=== PATIENT | female | born 1940 | race Caucasian/White ===

== ENCOUNTER 2023-08-25 12:23 | Inpatient (IN) | payer MEDICARE, BC, SELFPAY ==
[2023-08-25] VITALS (8 sets, daily range): BP systolic 113–219; BP diastolic 53–79; PULSE 79–98; RESP 18; TEMP 36.7–38.1; O2SAT 88–95
--- NOTE | 2023-08-25 | DI.RAD_ITS ---
Exam(s) XR CHEST 1V IN DI DEPT EXAM: XR CHEST 1V IN DI DEPT CLINICAL HISTORY: pre-op TECHNIQUE: 2D digital imaging was performed of the chest. One image was obtained. An AP view was ob tained. COMPARISON: No exams were available for comparison FINDINGS: MEDIASTINUM: Normal. HEART: Normal. PULMONARY VASCULATURE: Normal. LUNGS: Clear. PLEURAL SPACE: No pleural effusion or pneumothorax. BONE:Within normal limits for the patient's age. Intramedullary calcifications are seen in the proxim al metaphysis of the right humerus. This may represent a bone infarct or an enchondroma. OTHER FINDINGS:Normal. IMPRESSION: No focal consolidation. DATA REPOSITORY: RADIATION DOSE DELIVERED:
--- NOTE | 2023-08-25 12:30 | DI.RAD_ITS ---
Exam(s) XR HIP LT COMPLETE AP PELVIS XR FEMUR LT CT LOWER EXTREMITY LT WO EXAM: CT LOWER EXTREMITY LT WO and XR hip LT complete AP pelvis and XR femur LT CLINICAL HISTORY: Lt femoral neck fx. TECHNIQUE: Imaging Protocol: Axial computed tomography images with coronal and sagittal reformatted images were created and reviewed. Six images were obtained. COMPARISON: CR,XR XR HIP LT COMPLETE AP PELVIS from 08/25/2023 CR,XR XR FEMUR LT from 08/25/2023 FINDINGS: XR hip LT, AP pelvis and XR femur LT: There is an acute subcapital fracture of the left femoral neck. There is mild impaction of the fract ure. No other fractures identified. There are degenerative changes seen in the hips bilaterally. T here are degenerative changes seen in the lower lumbar spine. The sacroiliac joints and symphysis pu bis appear intact. Atherosclerosis is present. Bones: There is an acute subcapital fracture of the left femoral neck. No other fracture is identif ied. The femoral head is seated within the acetabulum. There are mild degenerative changes seen at the hip. No lytic or sclerotic lesions are identified. Soft Tissues: Note is made of diverticulosis of the colon. IMPRESSION: Acute subcapital left femoral neck fracture. There is mild impaction of the fracture noted. RADIATION DOSE DELIVERED: Total DLP Total DLP DATA REPOSITORY: All CT scans at this facility are submitted to the National Radiology Data Registry (NRDR) Dose Index Registry (DIR) with the [employer] ([employer]). RADIATION OPTIMIZATION: All CT scans at this facility use at least one of these dose optimization te chniques: automated exposure control; mA and/or kV adjustment per patient size (includes targeted exa ms where dose is matched to clinical indication); or iterative reconstruction.
--- NOTE | 2023-08-25 12:43 | ED.GENADUL_ITS ---
Discharge Plan Disposition Patient Disposition: Admit to [facility] Condition: Stable Discharge Details Chief Complaint: Fall/Non TraumaCriteria Clinical Impression: Fracture of neck of left femur Primary Care Provider: Unknown,Unknown ED Provider: Jack Hand Home Meds and New Rx's Prescriptions: No Action aspirin 325 MG tablet 325 mg PO DAILY Medical Decision Making This dictation utilizes [id number] dictation software and may contain unedited grammatical errors. 82 y/o F presents to ED today with a chief complaint of L hip pain (R-foot dominant) from a trip & fall this morning around 0830. Onset and characteristics include 8/10 L hip pain, feels as if its broken, drove herself in, refusing pain meds here. Patients' medical history: noncontributory - denies cardiac history. Family and social history: noncontributory, lives at home with her , ambulates normally very well without assisttance. Pertinent exam findings / vital signs include TTP L hip, no sensory or ciruclatory deficit distally, pelvis stable. Differential / pathologies of concern include Hip Fracture, Contusion, Strain/Sprain, Pelvic Fracture. Diagnostic studies of: -XR L Hip - shows L proximal subcapital femur fracture, non-displaced. Interventions of: -none, patient refusing pain medicines, is being kept non-WB. ED Course/Assessment/Plan: L subcapital hip fracture of L femoral neck, discussed with Dr. Light- recommends hospitalist admit and ortho will consult and perform surgery if needed, forwarded images to him for operative planning. Consulted with hospita list Dr. Ross for admission who accepts. Findings not consistent with neurovascular compromise. Disposition of Fracture of Neck of Left Femur Patient verbalized understanding of the plan and return to ED criteria and engaged in shared decision making. Medical Records Medical records reviewed: Yes I reviewed the patient's medical records. Imaging Data Radiologic Study: Imaging: X-Ray Radiologist's impression: vRAD read subcapital fracture of proximal left femur HPI General Date/Time Provider Initiated Documentation: 08/25/23 12:39 . HPI Narrative: 82 year-old female presents to ED today by POV/amublating with a chief complaint of L hip pain after a trip & fall on a single step with onset around 0830 this morning. Patient drove themselves in. Quality described as feels like she broke her hip, asking for Dr. Aguila to see her in ED, no radiation to leg length discrepency, internal/external rotation, denies large swelling or skin changes, states pain with weight-bearing. Patient is R-foot dominant, does not use a walker or any other device at baseline- lives a full independent life with her . Severity is described as 8/10. Palliating factors include nothing specific- refusing Tylenol & ibuprofen and ice pack here in ED. Provoking factors include nothing specific. Patient not anticoagulated. Related Data Home Medications Medication Instructions Recorded Confirmed aspirin 325 mg tablet 325 mg PO DAILY 09/14/15 08/25/23 Allergies Allergy/AdvReac Type Severity Reaction Status Date / Time tetracycline AdvReac Intermediate rash Unverified 08/25/23 12:36 azithromycin AdvReac Mild itchy Unverified 08/25/23 12:36 seasonal allergies Allergy Mild Uncoded 08/25/23 12:36 General Stated Complaint: Fall/Non TraumaCriteria CONNIE: 4 Review of Systems All systems reviewed & are unremarkable except as noted in HPI and below PFSH All Active Problems (Updated 08/25/23 @ 13:59 by SOMMER Dutton) Fracture of neck of left femur (Acute) Social History Smoking/Tobacco Use Status: Never Smoking risk assessment performed?: Yes Drug use: Never Housing: house Do you feel safe at home: Yes Do you feel safe in your relationship?: Yes Additional Social history: lives with cheng, FALLON, RN 08/25/23 Exam Narrative Exam Narrative: GENERAL APPEARANCE: Well-nourished, non-toxic, awake and alert, atraumatic, no acute distress. SKIN: Warm, pink, dry, intact, without rashes/lesions/ulcerations. HEAD: Normocephalic, atraumatic, normal hair distribution for gender/age. EYES: Pupils PERRLA, EOMs intact without nystagmus, normal conjunctiva, no exudates on lids/lashes. ENT: Nares patent, no circumoral cyanosis, no facial swelling NECK: Supple, trachea midline, painless cervical ROM. LUNGS/CHEST: Lungs CTA bilaterally- no rhonchi/rales/wheezes diffusely, non- labored respirations, normal A/P diameter, symmetrical expansion, no chest wall deformity HEART (CV/PV): Regular rate and rhythm without murmur, no peripheral edema, no JVD. ABDOMEN: Soft, non-distended, no guarding, no tenderness. MSK: Normal ROM, no swelling/deformity to bilateral UEs or LEs, moving all extremities without weakness, no cyanosis, spine midline without tenderness, normal curvature. L LE: pelvis stable, TTP at greater trochanter of L hip, distal femur stable, states cannot extend leg fully - sensation intact distally, dorsalis pedis pulse 2+ NEURO: Mental Status AAOx4 - alert to person, place, time, events No facial droop, no forehead involvement. Motor: No focal weakness - strength 5/5 in bilateral UEs and LEs, proximal and distal, symmetric. Sensory: sensation intact to light touch globally. Gait NT. PSYCH: dysthymic, cooperative, pleasant, appropriate speech Course Vital Signs Vital signs: Vital Signs Temperature 36.7 C 08/25/23 12:30 Pulse 91 H 08/25/23 12:30 Respiratory Rate 18 08/25/23 12:30 Blood Pressure 219/75 H 08/25/23 12:30 Pulse Oximetry 95 08/25/23 12:30 Temperature 36.7 C 08/25/23 12:30 Temperature Source Oral 08/25/23 12:30 Pulse 91 H 08/25/23 12:30 Respiratory Rate 18 08/25/23 12:30 Respiratory Effort Normal 08/25/23 12:37 Blood Pressure 219/75 H 08/25/23 12:30 Pulse Oximetry 95 08/25/23 12:30 Oxygen Delivery Method Room Air 08/25/23 12:30 Oxygen Flow Rate 0 08/25/23 12:30 Pain Level 4 08/25/23 12:39
--- NOTE | 2023-08-25 13:27 | DI.VRAD_ITS ---
PROCEDURE INFORMATION: Exam: XR Left Hip Exam date and time: 08/25/2023 1:00 PM Age: 82 years old Clinical indication: Hip pain; Left hip TECHNIQUE: Imaging protocol: Radiologic exam of the left hip. Views: 2 or 3 views hip with pelvis when performed. COMPARISON: No relevant prior studies available. FINDINGS: Bones/joints: Subcapital fracture of the proximal left femur, perhaps with minimal impaction. No obvious acute fracture of the pelvic bones proper. Soft tissues: Unremarkable. IMPRESSION: Subcapital fracture proximal left femur. Dictated and Authenticated by: Deo Sanches MD. Ordering:DUDLEY Santiago MD
--- NOTE | 2023-08-25 14:02 | W.PM.HP.N ---
Date of service: 08/25/23 Time of Service: 14:03 Assessment and Plan Assessment and plan (1) Fracture of neck of left femur: Status: Acute Assessment and plan: -Fracture resulted after mechanical fall on the steps -Preoperative CBC, CMP, INR, chest x-ray and EKG are ordered and currently pending -Has no past medical history -Will manage pain and continue to offer PRNs -Will be n.p.o. at midnight with anticipation of surgical repair on 08/26/2023 History of Present Illness History of Present Illness Chief Complaint: Left hip pain Narrative: 82-year-old female, healthy and independent with no past medical history presents to the emergency department after experiencing a fall and having left hip pain. Patient states that she tripped and fell on a single step around 830 this morning and began to experience left hip pain however, patient was able to drive herself to the emergency department. She denies any lightheaded or dizziness preceding the fall, hitting her head, head injury, chest pain shortness of breath, nausea vomiting or diarrhea. In the emergency department patient was noted as being hypertensive however this is likely secondary to pain though the patient did refuse Tylenol ibuprofen or an ice pack in the emergency department. Remainder of her vital signs unremarkable, however x-ray of the hip did show a left subcapital proximal femur fracture. Emergency room PA discussed with orthopedic surgery who stated they would take the patient to the operating room tomorrow, 08/26/2023. Which the emergency room PA paged hospitalist for admission for patient with left hip fracture requiring surgical repair. Review of Systems All systems reviewed & are unremarkable except as noted in HPI and below PFSH All Active Problems Fracture of neck of left femur (Acute) Social History Smoking/Tobacco Use Status: Never Smoking risk assessment performed?: Yes Drug use: Never Housing: house Do you feel safe at home: Yes Do you feel safe in your relationship?: Yes Additional Social history: lives with cheng, FALLON, RN 08/25/23 Meds Allergies and Home Medications Allergies Allergy/AdvReac Type Severity Reaction Status Date / Time tetracycline AdvReac Intermediate rash Unverified 08/25/23 14:40 azithromycin AdvReac Mild itchy Unverified 08/25/23 14:40 seasonal allergies Allergy Mild Uncoded 08/25/23 14:40 Home Medications Medication Instructions Recorded Confirmed Type aspirin 325 mg tablet 325 mg PO DAILY 09/14/15 08/25/23 History Exam Narrative Exam Narrative: Well-appearing older female laying in bed in no acute distress, A&O x 4, heart regular rate rhythm, lungs clear to auscultation bilaterally, abdomen soft, nontender nondistended, decreased range of motion of left lower extremity at the hip second Results Labs 08/25/23 17:16 08/25/23 17:16 Last Vital Signs Temp 98.0 F 08/25/23 12:30 Pulse 91 H 08/25/23 12:30 Resp 18 08/25/23 12:30 BP 219/75 H 08/25/23 12:30 Pulse Ox 95 08/25/23 12:30 Time Spent Time spent with Patient: >75 minutes Time was spent: preparing to see the patient(eg.review tests), obtaining and/or reviewing separately otained hiistory, ordering medications,tests, procedures, referring, communicating with other health daycare manager, indepentently interpreting results, counseling the patient and care coordination
[2023-08-25] MEDS: Acetaminophen 500 MG TAB 1000 MG PO (14:50)
[2023-08-25] MEDS: Ketorolac 10 MG TAB PO (14:50)
[2023-08-25] MEDS: oxyCODONE 5 MG TAB PO (14:50)
--- NOTE | 2023-08-25 16:39 | NUR.NOTE ---
Discussed DPOAH with pt and her as they do not have an advanced directive. They will talk about it together and decide what they want.Nursing Note:
--- NOTE | 2023-08-25 17:15 | OCONE_ITS ---
Date of service: 08/26/23 Time of Service: 08:30 Assessment and Plan Assessment and plan (1) Fracture of neck of left femur: Status: Acute Assessment and plan: 82 year old female with minimally displaced Left femoral neck fx Patient describes mechanical fall yesterday injuring left hip. Describes groin pain that radiates down the thigh. Was able to weight-bear after the injury, go to [employer] after the fall, and then and drive herself to the emergency room on insistence of her family. Denies any pre-existing hip pain or problems at all. No known arthritis. No medical visits for hip pain. Did fall onto her last hip about 9 months ago, but no residual problems that she knows about. Ambulates without assist device inside and outdoors. Denies any major medical problems. Allergies to a couple antibiotics. Review of systems negative including no headache, neck pain, chest pain, shortness of breath, nausea vomiting, numbness or tingling in the extremities. Patient resting comfortably in hospital bed. Alert, oriented, and conversant. Shows minor abrasions right hand dorsal long and ring finger PIPJ knuckles, but no deformity no bruising in about full painless range of motion. Otherwise no injuries bilateral upper extremities and right lower extremity. Left lower extremity without any deformity or major rotation malalignment. No visible bruising, no edema. Thigh compartments soft. Calf compressible. Easily demonstrates intact motor about foot and ankle, sensory intact throughout without paresthesias. Dorsalis pedis pulse readily palpable. Preoperative workup reviewed?elevated WBC likely stress response, monitor for resolution after surgery, consider potential usual causes like atelectasis, PNA, and UTI if continues. Discussed thoroughly with patient and her Cheng. X-rays show minimally displaced femoral neck fracture. CT scan confirms complete, mildly impacted fracture with, mild posterior angulation and no significant comminution. Again, patient denies any pre-existing hip problems at all. We reviewed the significant arthrosis on x-ray. We discussed the surgical management of this fracture with internal fixation versus arthroplasty. Patient would like to maintain her current hip and proceed with the less invasive cannulated screw fixation. They understand the risks of femoral neck shortening, nonunion, and AVN about 20%, which may require additional surgery in the future like total hip arthroplasty. We also discussed potential prominent screw heads requiring hardware removal down the road. Decision to proceed with surgery today: Left hip closed reduction and internal fixation (percutaneous cannulated screws). Plan on gentle reduction of posterior angulation and posterior positioning screw with threads crossing the fracture to prevent collapse. The risks, benefits, and alternatives were thoroughly discussed. Patient was counseled regarding pain management, expected postoperative course, and recovery timeline. All questions were answered. Informed consent was obtained. They agree and understand treatment plan. Breathing comfortably on room air. Was on low-flow nasal cannula after narcotic administration on the floor. No coughs or wheezes. 2+ Left dorsalis pedis pulse. Regular rate and rhythm. PFSH All Active Problems (Updated 08/25/23 @ 17:21 by Luis Light MD) Fracture of neck of left femur (Acute 08/25/23) Social History Smoking/Tobacco Use Status: Never Smoking risk assessment performed?: Yes Drug use: Never Housing: house Do you feel safe at home: Yes Do you feel safe in your relationship?: Yes Additional Social history: lives with cheng, FALLON, RN 08/25/23 Results Last Vital Signs Temp 100.4 F H 08/25/23 16:13 Pulse 98 H 08/25/23 16:13 Resp 18 08/25/23 16:13 BP 113/65 08/25/23 16:13 Pulse Ox 95 08/25/23 16:13 Labs 08/26/23 06:15 08/26/23 06:15
--- NOTE | 2023-08-25 17:15 | RT.EKG_ITS ---
APPROVED REPORT Exam: Resting ECG Reason for Exam: pre-op Patient Location: I HR:96 bpm ECG Measurements Heart Rate 96 AXIS ND 168 P 69 QRSd 126 QRS -44 QT 379 T 89 QTc 479 Conclusion Sinus rhythm...normal P axis, V-rate 50- 99 Probable left atrial enlargement...P >50mS, <-0.10mV V1 Left bundle branch block...QRSd>120, broad/notched R I have reviewed and interpreted ECG and agree with software generated interpretation.
[2023-08-25] MEDS: Lidocaine 5% Patch 1 PATCH TP (17:35)
--- NOTE | 2023-08-25 18:30 | DI.VRAD_ITS ---
PROCEDURE INFORMATION: Exam: XR Chest Exam date and time: 08/25/2023 5:59 PM Age: 82 years old Clinical indication: Other: Pre-op TECHNIQUE: Imaging protocol: Radiologic exam of the chest. Views: 1 view. COMPARISON: No relevant prior studies available. FINDINGS: Lungs: Mild hyperinflation without airspace consolidation. Pleural spaces: No pleural effusion. No pneumothorax. Heart/Mediastinum: No cardiomegaly. Bones/joints: Benign-appearing likely bone island or bone infarct in the right humerus. No displaced fracture. IMPRESSION: Mild hyperinflation without airspace consolidation. Dictated and Authenticated by: Haylie Cain MD. Ordering:TOPHER Bolton MD
--- NOTE | 2023-08-25 18:31 | DI.VRAD_ITS ---
PROCEDURE INFORMATION: Exam: XR Left Femur Exam date and time: 08/25/2023 6:05 PM Age: 82 years old Clinical indication: Injury or trauma; Fall; Other: Fracture TECHNIQUE: Imaging protocol: Radiologic exam of the left femur. Views: 2 views. COMPARISON: CT LOWER EXTREMITY LT WO 08/25/2023 5:53 PM FINDINGS: Bones/joints: Acute subcapital left femoral neck fracture with minimal impaction. The remainder of the femur is intact. The bones are demineralized. Soft tissues: Unremarkable. IMPRESSION: Acute subcapital left femoral neck fracture with minimal impaction. The remainder of the femur is intact. Dictated and Authenticated by: Haylie Cain MD. Ordering:KAT Smith MD
--- NOTE | 2023-08-25 18:31 | DI.VRAD_ITS ---
PROCEDURE INFORMATION: Exam: CT Left Lower Extremity Without Contrast, Hip Exam date and time: 08/25/2023 5:53 PM Age: 82 years old Clinical indication: Other: L femoral neck FX TECHNIQUE: Imaging protocol: CT of the left lower extremity without contrast was performed. Exam focused on the hip. COMPARISON: CR XR HIP LT COMPLETE AP PELVIS 08/25/2023 1:00 PM FINDINGS: Bones/joints: Acute subcapital left femoral neck fracture with minimal impaction. No dislocation. Moderate joint space narrowing of the left hip. Minor edema around the left hip without a gross fluid collection. Soft tissues: Benign-appearing enthesophytes. Vasculature: Atherosclerosis. Bowel: The rectum as visualized is severely distended with stool without definite wall thickening to suggest proctitis. IMPRESSION: Acute subcapital left femoral neck fracture with minimal impaction. Dictated and Authenticated by: Haylie Cain MD. Ordering:KAT Smith MD
[2023-08-25 19:17] LABS: Abs Immature Grans 0.11 10^3/uL (0.0-0.06); Absolute Basophil Count 0.07 10^3/uL (0.0-0.2); Absolute Eosinophil Count 0.03 10^3/uL (0.0-0.7); Absolute Lymphocyte Count 1.37 10^3/uL (1.2-3.4); Absolute Monocyte Count 1.01 10^3/uL (0.1-0.8); Absolute Neutrophil Count 14.56 10^3/uL (1.2-6.7); Basophils % 0.4; Eosinophils % 0.2; HCT 37.8 % (36.0-46.0); HGB 12.4 g/dL (11.2-15.7); Immature Grans % 0.6; MCHC 32.8 % (32.0-36.0); MCV 89 fL (80-95); MPV 10.7 fL (8.0-11.0); Monocytes % 5.9; Neutrophils % 84.9; Platelet Count 208 10^3/uL (130-400); RBC 4.27 10^6/uL (3.93-5.22); RDW 12.6 % (11.7-14.6); RDW-SD 40.2 fL; WBC 17.15 10^3/uL (4.4-10.8)
[2023-08-25 19:25] LABS: INR 1.1 (0.9-1.1)
[2023-08-25 19:30] LABS: ALT 27 U/L (14-59); AST 26 U/L (15-37); Albumin 3.2 g/dL (3.4-5.0); Alkaline Phosphatase 79 U/L (46-116); Anion Gap 9.5 mmol/L (3-11); BUN 18 mg/dL (7-18); Bilirubin, Total 0.5 mg/dL (0.2-1.0); CO2 26.5 mmol/L (21.0-32.0); CREATININE 1.2 mg/dL (0.55-1.02); Calcium 8.9 mg/dL (8.5-10.1); Chloride 103 mmol/L (98-107); Estimated GFR 45.76 (mL/min/1.73m2); Glucose 140 mg/dL (74-106); Sodium 139 mmol/L (136-145); Total Protein 6.9 g/dL (6.4-8.2)
[2023-08-25] MEDS: Normal Saline Flush 10 ML SYR IVP (20:15)
[2023-08-26] VITALS (15 sets, daily range): BP systolic 127–166; BP diastolic 36–75; PULSE 77–98; RESP 16–20; TEMP 36.3–38.3; O2SAT 82–97; BMI 24.3
[2023-08-26] MEDS: Acetaminophen 325 MG TAB PO ×2 (04:03→08:30)
[2023-08-26] MEDS: Patch Removal 1 EACH TP (05:38)
[2023-08-26 07:08] LABS: HCT 37.1 % (36.0-46.0); HGB 12.5 g/dL (11.2-15.7); MCH 29.5 pg (27.0-33.0); MCHC 33.7 % (32.0-36.0); MCV 88 fL (80-95); MPV 11.5 fL (8.0-11.0); Platelet Count 211 10^3/uL (130-400); RBC 4.24 10^6/uL (3.93-5.22); RDW 12.7 % (11.7-14.6); RDW-SD 39.9 fL; WBC 12.37 10^3/uL (4.4-10.8)
[2023-08-26 07:23] LABS: Anion Gap 10.4 mmol/L (3-11); BUN 19 mg/dL (7-18); CO2 25.6 mmol/L (21.0-32.0); Calcium 9.1 mg/dL (8.5-10.1); Chloride 103 mmol/L (98-107); Estimated GFR 56.95 (mL/min/1.73m2); Glucose 112 mg/dL (74-106); Magnesium 1.8 mg/dL (1.8-2.4); Potassium 3.9 mmol/L (3.5-5.1); Sodium 139 mmol/L (136-145)
--- NOTE | 2023-08-26 08:15 | DI.RAD_ITS ---
Exam(s) XR HIP LT IN OR EXAM: XR HIP LT IN OR CLINICAL HISTORY: Fracture of neck of left femur. TECHNIQUE: 2D digital imaging was performed. COMPARISON: No exams were available for comparison FINDINGS: Fluoroscopy provided during orthopedic pinning of left femoral neck fracture. See procedure report f or details Total fluoroscopy time 40.8 seconds IMPRESSION: Radiation exposure index/cumulative dose: Shantalflako= 4.4092mGy DATA REPOSITORY: RADIATION DOSE DELIVERED:
--- NOTE | 2023-08-26 08:24 | ANES.PREOP_ITS ---
General Info Date of Service Date Performed: 08/26/23 Height: 4 ft 11 in Weight: 54.7 kg Body Mass Index (BMI): 24.3 Surgical Procedure: Operation Date: 08/26/23 10:10 Proposed Procedure Side Surgeon p Hip Cannulated Fx Left Luis Light MD Meds Allergies and Home Medications Allergies Allergy/AdvReac Type Severity Reaction Status Date / Time tetracycline AdvReac Intermediate rash Unverified 08/25/23 14:40 azithromycin AdvReac Mild itchy Unverified 08/25/23 14:40 seasonal allergies Allergy Mild Uncoded 08/25/23 14:40 Home Medication Medication Instructions Recorded aspirin 325 mg tablet 325 mg PO DAILY 09/14/15 Current Visit Medications: Current Medications Generic Name Dose Route Start Last Admin Trade Name Freq PRN Reason Stop Dose Admin Acetaminophen 0 mg 08/25/23 15:34 08/26/23 04:03 Acetaminophen 325 Mg Tab PO 650 mg Q4H PRN PRN Administration Docusate Sodium 100 mg 08/25/23 15:34 Docusate Sodium 100 Mg Cap PO TID PRN PRN IV Miscellaneous Supplies 1 each 08/25/23 15:34 Iv Access IV DIRECTED JUAN Lidocaine 1 patch 08/25/23 18:00 08/25/23 17:35 Lidocaine 5% Patch TP 1 patch Q24H JUAN Administration Miscellaneous 1 each 08/26/23 06:00 08/26/23 05:38 Patch Removal TP 1 each Q24H JUAN Administration Polyethylene Glycol 17 gm 08/25/23 15:34 Polyethylene Glycol 3350 17 Gm Packet PO DAILY PRN PRN Constipation Sodium Chloride 0 ml 08/25/23 15:34 Normal Saline Flush 10 Ml Syr IVP PRN PRN Sodium Chloride 0 ml 08/25/23 20:00 08/25/23 20:15 Normal Saline Flush 10 Ml Syr IVP 10 ml BID JUAN Administration Sodium Chloride 0 ml 08/25/23 15:34 Normal Saline 10 Ml Vial IJ DIRECTED PRN PFSH Active Problems Active Problems: Problem Status Onset Code Fracture of neck of left femur 08/25/23 S72.002A Medical History Medical History Comments:: CVA (1993?, some right sided weakness, primarily hand), TIA (2019?, primarily dizziness did not follow up with no symptoms since) Tobacco Smoking/Tobacco Use Status: Never Substance Use Substance use: Never Vital Signs and Lab Results Vital Signs Most Recent Vital Signs in EMR: Most Recent Vital Signs Temp Pulse Resp BP Pulse Ox 37.8 C H 90 18 165/69 H 92 08/26/23 07:51 08/26/23 07:51 08/26/23 07:51 08/26/23 07:51 08/26/23 07:51 Lab Results 08/26/23 06:15 08/26/23 06:15 Blood Type / Crossmatch: 2 No Data to Display Complete Blood Count: 2 White Blood Count 12.37 10^3/uL (4.4-10.8) H 08/26/23 06:15 Red Blood Count 4.24 10^6/uL (3.93-5.22) 08/26/23 06:15 Hemoglobin 12.5 g/dL (11.2-15.7) 08/26/23 06:15 Hematocrit 37.1 % (36.0-46.0) 08/26/23 06:15 Platelet Count 211 10^3/uL (130-400) 08/26/23 06:15 Complete Metabolic Panel: 2 Sodium 139 mmol/L (136-145) 08/26/23 06:15 Potassium 3.9 mmol/L (3.5-5.1) 08/26/23 06:15 Chloride 103 mmol/L (98-107) 08/26/23 06:15 Carbon Dioxide 25.6 mmol/L (21.0-32.0) 08/26/23 06:15 BUN 19 mg/dL (7-18) H 08/26/23 06:15 Creatinine 1.0 mg/dL (0.55-1.02) 08/26/23 06:15 Est GFR (CKD-EPI 2020) 56.95 (mL/min/1.73m2) 08/26/23 06:15 Magnesium 1.8 mg/dL (1.8-2.4) 08/26/23 06:15 Calcium 9.1 mg/dL (8.5-10.1) 08/26/23 06:15 Albumin 3.2 g/dL (3.4-5.0) L 08/25/23 18:58 Glucose 112 mg/dL (74-106) H 08/26/23 06:15 Liver Function Panel: 2 Alanine Aminotransferase (ALT/SGPT) 27 U/L (14-59) 08/25/23 18: 58 Aspartate Amino Transf (AST/SGOT) 26 U/L (15-37) 08/25/23 18:58 Coagulation Panel: 2 INR International Normalized Ratio 1.1 (0.9-1.1) 08/25/23 18:5 8 Prothrombin Time 11.0 sec (9.1-11.1) 08/25/23 18:58 Cardiac Panel: 2 No Data to Display Arterial Blood Gas: 2 No Data to Display Venous Blood Gas: 2 No Data to Display Pancreas Panel: 2 No Data to Display Thyroid Panel: 2 No Data to Display Infectious Disease: 2 No Data to Display Blood Cultures: 2 No Data to Display Toxicology Panel: 2 No Data to Display Anesthesia Assessment and Plan Anesthesia History Personal History: No History of Anesthesia Complications Family History: No Family History of Anesthesia Complications Exercise Tolerance Exercise Tolerance: Metabolic Equivalents>4 Pertinent Negatives Pertinent Negatives: No Symptoms of GERD, No Major Pulmonary Symptoms or Complaints and No History of CVA/TIA Cardiac & Pulmonary Exam Cardiac Exam: Normal S1/S2 Heart Sounds Pulmonary Exam: Clear Bilateral Breath Sounds Implantable Cardiac Device Does patient have a Pacemaker or an ICD?: No Airway Exam Known Difficult Airway: No Mallampati Class: 2 Mouth Opening: Normal (> 3cm) Thyromental Distance: Greater than 3 cm Neck Range of Motion: Full ROM Neck Circumference: Normal Teeth Condition: Normal Dentition ASA Classification ASA Score: ASA 2 Emergency Case?: No NPO Status NPO Status: NPO Clears >2 hours, Solids >8 hours Anesthesia Plan Resuscitation Status: Full Code Anesthesia Technique: Spinal Anesthesia Airway Planned: Natural Airway Monitors Used: Standard Monitors
[2023-08-26] MEDS: Normal Saline Flush 10 ML SYR IVP (08:34)
[2023-08-26] MEDS: Lactated Ringers 1,000 ML 30 ML IV (09:00)
--- NOTE | 2023-08-26 09:09 | W.PM.OP ---
Date of service: 08/26/23 Time of Service: 09:30 Operative Note Operative Note DATE OF PROCEDURE: 08/26/23 PRE-OP DIAGNOSIS: Left minimally displaced femoral neck fracture POST-OP DIAGNOSIS: same PROCEDURE: Left hip closed reduction and internal fixation, CPT #22264 SURGEON: Luis Light FLIGHT TEST SHOP MECHANIC: None None ANESTHESIA TYPE: Local By Surgeon and General LMA/ETT Refer to Anesthesia Record ESTIMATED BLOOD LOSS: 5 COMPLICATIONS: None Patient was transported to: PACU Patient's condition: stable Implants: Synthes 7.3 mm cannulated screw set with 80 mm 16 mm partially-threaded anterior screw, 75 mm 32 mm partially-threaded posterior screw, and 80 mm 32 mm partially-threaded inferior screw Indications: Please see medical record for details Procedure Description: In the operating room, general anesthesia was induced. The patient was carefully transferred and positioned supine on the fracture table. All bony prominences were well padded. Pre-operative antibiotics were administered. C-arm fluoroscopy was used to confirm appropriate provisional fracture alignment. The correct patient, procedure, and side of the procedure were all verified prior to beginning. Slight flexion internal rotation and traction were used to restore excellent femoral neck alignment especially correcting the posterior angulation on the lateral view. Local anesthetic with epinephrine was infiltrated about the lateral proximal femoral start site superficially and deep. The knife was used to make a small longitudinal incision through the skin and nicked the IT band. The 2.8 mm threaded guidewire was then localized to the center of the cortex on the lateral femur at about the upper level of the lesser trochanter and directed across the femoral neck, fracture site, and into the posterior central femoral head subchondral bone. The incision was extended slightly proximally, the IT band nicked again, and another threaded guidewire directed from an anterior lateral start point into the anterior proximal femoral neck and then head subchondral bone. Lastly a posterior superior threaded guidewire was placed in a similar fashion. Guidewire lengths were checked ensured to be subchondral without joint penetration. Depth gauge was used to measure length and about 5 mm subtracted from each. The lateral cortex was opened with the 5 mm cannulated drill. The anterior superior screw was placed first, short threads chosen to obtain slight compression in order to prevent varus and posterior angulation. The inferior screw was placed next, long threads chosen, followed by posterior superior screw, long threads also chosen, as positioning screws to prevent femoral neck shortening, collapse, and posterior angulation. All screws were checked and in appropriate position. The femoral neck remained in excellent alignment. The small wound was copiously irrigated. Subcutaneous tissue was closed using 2-0 monocryl in a buried interrupted fashion. Skin glue was applied over the incision, which was then covered with a small Mepilex Band-Aid. The patient awoke from anesthesia without complication and was transferred to the recovery room in stable condition.
--- NOTE | 2023-08-26 09:10 | PGE_ITS ---
Date of Service Date of service: 08/26/23 Time of Service: 09:11 Assessment and Plan Assessment and plan (1) Fracture of neck of left femur: Status: Acute Assessment and plan: -Fracture resulted after mechanical fall on the steps -Preoperative CBC, CMP, INR, chest x-ray and EKG are ordered and currently pending -Has no past medical history -Will manage pain and continue to offer PRNs -has been n.p.o. since midnight and has been taken down to surgical repair Subjective Subjective Interval history since last seen: Patient seen prior to surgery and states that she is doing well this morning and has no complaints or concerns. Exam Narrative Exam Narrative: Well-appearing older female laying in bed in no acute distress, A&O x 4, heart regular rate rhythm, lungs clear to auscultation bilaterally, abdomen soft, nontender nondistended, decreased range of motion of left lower extremity at the hip second Objective Last Vital Signs Temp 100.0 F H 08/26/23 08:30 Pulse 90 08/26/23 07:51 Resp 18 08/26/23 07:51 BP 165/69 H 08/26/23 07:51 Pulse Ox 92 08/26/23 07:51 Laboratory Results - last 24 hr 08/25/23 08/26/23 18:58 06:15 WBC 17.15 H 12.37 H RBC 4.27 4.24 Hgb 12.4 12.5 Hct 37.8 37.1 MCV 89 88 MCH 29.0 29.5 MCHC 32.8 33.7 RDW 12.6 12.7 Plt Count 208 211 MPV 10.7 11.5 H Immature Gran % 0.6 Neutrophils % 84.9 Lymphocytes % 8.0 Monocytes % 5.9 Eosinophils % 0.2 Basophils % 0.4 Nucleated RBC % 0.0 Absolute Neutrophils 14.56 H Absolute Lymphocytes 1.37 Absolute Monocytes 1.01 H Absolute Eosinophils 0.03 Absolute Basophils 0.07 PT 11.0 INR 1.1 Sodium 139 139 Potassium 4.0 3.9 Chloride 103 103 Carbon Dioxide 26.5 25.6 Anion Gap 9.5 10.4 BUN 18 19 H Creatinine 1.2 H 1.0 Est GFR (CKD-EPI 2020) 45.76 56.95 Glucose 140 H 112 H Calcium 8.9 9.1 Magnesium 1.8 Total Bilirubin 0.5 AST 26 ALT 27 Alkaline Phosphatase 79 Total Protein 6.9 Albumin 3.2 L Time Spent with Patient Time Spent with Patient: >50 minutes Time was spent: preparing to see the patient(eg.review tests), obtaining and/or reviewing separately otained hiistory, ordering medications,tests, procedures, referring, communicating with other health home care physical therapist, indepentently interpreting results, counseling the patient and care coordination
[2023-08-26] MEDS: ceFAZolin 2 GM/50 ML BAG 100 GM (09:37)
[2023-08-26] MEDS: Tranexamic Acid 1,000 MG/10 ML VIAL 1000 MG (09:43)
[2023-08-26] MEDS: Normal Saline 100 ML 360 ML (10:00)
[2023-08-26] MEDS: EPINEPHrine 10 MG/10 ML ML (10:03)
[2023-08-26] MEDS: Bupivacaine 0.25% Pres-Free 30 ML VIAL (10:03)
--- NOTE | 2023-08-26 10:51 | W.PM.PROGNOT ---
Date of Service Date of service: 08/26/23 Time of Service: 10:51 Assessment and Plan Assessment and plan (1) Fracture of neck of left femur: Status: Acute Assessment and plan: 82-year-old female postop day #0 status post Left hip closed reduction internal fixation (cannulated screws) Comfortable, doing well, left hip bandage clean dry intact, no significant edema or ecchymosis. Bilateral lower extremity alignment and rotation symmetrical. No pain with passive hip range of motion. Left dorsalis pedis pulse readily palpable. Complete 24 hours postoperative antibiotics. Pain control-Multimodal. Physical therapy ordered: Protected weightbearing with walker May start chemical DVT prophylaxis this evening like SQH or MICHAEL assuming hemodynamically stable per primary medical team and transition to 81 mg ASA for 30 days as outpatient assuming discharge home ambulatory Continue mechanical DVT prophylaxis with SCDs and/or TAMMY hose Discharge when medically appropriate Follow-up will be arranged with Dr. Light outpatient [facility] in 10-[address] Ross Objective Last Vital Signs Temp 100.0 F H 08/26/23 08:30 Pulse 90 08/26/23 07:51 Resp 18 08/26/23 07:51 BP 165/69 H 08/26/23 07:51 Pulse Ox 92 08/26/23 07:51 Laboratory Results - last 24 hr 08/25/23 08/26/23 18:58 06:15 WBC 17.15 H 12.37 H RBC 4.27 4.24 Hgb 12.4 12.5 Hct 37.8 37.1 MCV 89 88 MCH 29.0 29.5 MCHC 32.8 33.7 RDW 12.6 12.7 Plt Count 208 211 MPV 10.7 11.5 H Immature Gran % 0.6 Neutrophils % 84.9 Lymphocytes % 8.0 Monocytes % 5.9 Eosinophils % 0.2 Basophils % 0.4 Nucleated RBC % 0.0 Absolute Neutrophils 14.56 H Absolute Lymphocytes 1.37 Absolute Monocytes 1.01 H Absolute Eosinophils 0.03 Absolute Basophils 0.07 PT 11.0 INR 1.1 Sodium 139 139 Potassium 4.0 3.9 Chloride 103 103 Carbon Dioxide 26.5 25.6 Anion Gap 9.5 10.4 BUN 18 19 H Creatinine 1.2 H 1.0 Est GFR (CKD-EPI 2020) 45.76 56.95 Glucose 140 H 112 H Calcium 8.9 9.1 Magnesium 1.8 Total Bilirubin 0.5 AST 26 ALT 27 Alkaline Phosphatase 79 Total Protein 6.9 Albumin 3.2 L Time Spent with Patient Time Spent with Patient: <25 minutes Time was spent: ordering medications,tests, procedures, indepentently interpreting results, counseling the patient and care coordination
[2023-08-26] MEDS: Ketorolac 15 MG/ML VIAL IVP (11:45)
--- NOTE | 2023-08-26 11:49 | W.ANESPOSTOP ---
Postoperative Evaluation Date, Time and Location Date Performed: 08/26/23 Time Performed: 11:49 Patient Location: PACU Vital Signs Most Recent Imported Vital Signs: Most Recent Vital Signs Temp Pulse Resp BP Pulse Ox 36.6 C 81 16 127/59 L 96 08/26/23 11:25 08/26/23 11:35 08/26/23 11:35 08/26/23 11:35 08/26/23 11:35 Pain Score Most Recent Pain Score: Most Recent Pain Score Pain Level [Left Hip] 4 08/25/23 12:39 Pain Level 0 08/26/23 11:35 Assessment Mental Status: Awake (Alert & Oriented to Patient Baseline) Airway and Respiratory Function: Patent airway with normal (patient baseline) respiratory exam Cardiovascular Function: Hemodynamically Stable Hydration Status: Adequately Hydrated Nausea & Vomiting: No Nausea or Vomiting Pain: Pt. Denies Any Pain Peripheral Nerve Block: Patient did not receive a nerve block
--- NOTE | 2023-08-26 14:19 | PT.INIE ---
PT Notes Visit Reasons: Left Subcapital Femur Fracture Physical Therapy Inpatient Initial Evaluation Date: 08/26/2023 Referring Doctor: Luis Light MD; Hoang Ross MD PT Orders: PT CONSULT: S/p Ortho surgery. Left hip protected weight bearing with walker Precautions: Fall. Standard. WBAT on the left LE with WBAT. Patient Profile/Admitting Diagnosis: Clary is an 82-year-old female who presented to the ED on 08/25/2023 due to left hip pain following a mechanical fall at home with diagnosis of left minimally displaced left femoral neck fracture ORIF of left hip on postoperative day 0. PMHX: All Active Problems Fracture of neck of left femur (Acute) Social History/Home Situation: Lives with Kush in a private home with 3 steps to enter with a rail on the left side going up. Independent with all aspects of ADLs prior to surgery without an assistive device. Still works in the summer doing gardening. Equipment Owned/DME: None Subjective: Denies pain, headache, and lightheadedness throughout session at rest and with weight bearing. Hopeful to be going home this afternoon when medically cleared. Objective: General Observation: Resting on bedside chair. Mepilex Ag over surgical incision. IV through left UE. Mental Status: Alert and oriented as to person, place, time, and purpose. Able to pay attention, focus, and respond appropriately. Pain: Denies Vital Signs: WNL as closely monitored by nursing staff ROM: Right Lower Extremity: Hip flexion WFL. Hip abduction WFL. Knee flexion WFL. Ankle dorsiflexion WFL. Ankle plantarflexion WFL. Left Lower Extremity: Hip flexion WFL. Hip abduction WFL. Knee flexion WFL. Ankle dorsiflexion WFL. Ankle plantarflexion WFL. Strength: Right Lower Extremity: Hip flexors 5/5. Hip abductors 5/5. Knee flexors 5 so Clary the lady who was here earlier/5. Knee extensors 5/5. Ankle dorsiflexors 5/5. Ankle plantarflexors 5/5. Left Lower Extremity: Hip flexors 4-/5. Hip abductors 4-/5. Knee flexors 4-/5. Knee extensors 4/5. Ankle dorsiflexors 4/5. Ankle plantarflexors 4/5. Bed Mobility/Transfers: Rolling independent Supine to sit independent Sit to supine independent Sit to stand independent with FWW Stand to sit independent with FWW Bed to reclining chair independent with FWW Reclining chair to bed independent with FWW Gait: Facilitated safe and correct performance of level surface ambulation covering a distance of 300 feet requiring stand by assist requiring only minimal assist for limb advancement, walker management, and safe movement sequence. Karissa decreased. Stairs: Guided patient with safe and correct negotiation of 6 x 4 inch steps and 4 x 6 inch steps while holding onto bilateral rails with moderate verbal cueing provided for safe and painless movement sequence of B LEs to reduce fall risk. Balance: Static Sitting: Normal Dynamic Sitting: Normal Static Standing: Fair Dynamic Standing: Fair Special Tests: Mobility Limitations Standardized Measure [facility] AM-PAC 6 clicks Basic Mobility Inpatient Short Form: Raw Score: 24 CMS Score: 0% deficit Informed Consent/Education: Patient was instructed in purpose of PT consult and plan of care. Agreeable to proceed with established PT POC to achieve personal goals. Trained patient with correct performance of exercises below to maximize motor control, joint flexibility, soft tissue extensibility of the L hip musculature to facilitate return to independent functional mobility performance. Access Code: [email or web address] URL: [email or web address] Date: 08/26/2023 Prepared by: Belkys Chapman Exercises - Gluteal Sets - 1 x daily - 7 x weekly - 1 sets - 10 reps - 5 hold - Supine Heel Slide - 1 x daily - 7 x weekly - 1 sets - 10 reps - 5 hold - Supine Ankle Pumps - 1 x daily - 7 x weekly - 1 sets - 10 reps - 5 hold - Seated March - 1 x daily - 7 x weekly - 1 sets - 10 reps - 5 hold - Seated Long Arc Quad - 1 x daily - 7 x weekly - 1 sets - 10 reps - 5 hold Assessment: Clary requires the use of a front-wheeled walker for all mobility ADL performance to maximize independence and reduce fall risk. Patient presents with clinical signs and symptoms consistent with current/admitting diagnoses that have resulted to mobility limitations, gait instability, generalized weakness, and overall ADL decline as demonstrated by the following impairment level findings: 1. Decreased strength to B UE/LE major muscle groups Impairments are contributing to the following functional limitations: 1. Difficulty with ambulation without assistive device 2. Increased completion time for mobility ADL performance Patient is assessed as a 54408 moderate complexity based on the following: History: 82-year-old female with past medical history as indicated above Examination: Demonstrable impairment in strength, balance, and mobility level with underlying impairments and functional limitations as exhibited above Presentation: Stable Decision Makin moderate complexity Goals: N/A. PT evaluation and 1 treatment session only for functional mobility training and HEP instruction. Plan of Care/Treatment Plan: N/A. PT evaluation and 1 treatment session only for functional mobility training and HEP instruction. DISCHARGE RECOMMENDATIONS: Home when medically cleared by orthopedic surgeon. Recommend outpatient PT services in order to optimize functional mobility outcomes and facilitate return to independent community ambulation without an assistive device. TREATMENT CODE/TIME: 34988 x 20 minutes for 1 unit, 69839 x 18 minutes for 1 unit beginning at 13:25 PM. Thank you for the opportunity to participate in the care of this patient. Belkys Chapman PT, DPT, CLT [facility] [place], [place]
--- NOTE | 2023-08-26 14:35 | W.PM.DS.N ---
Date of service: 08/26/23 Time of Service: 14:35 DS: Diagnosis Discharge Diagnosis (1) Fracture of neck of left femur: Status: Acute Asessment and Plan: Patient had no past medical history not on any medications prior to arrival and found to have a left subcapital femur fracture which was successfully repaired on the morning of 08/26/2023. Shortly after surgery the patient was up and walking with a walker with physical therapy determined that the patient would not need any additional services and would be safe to go home. This was confirmed by orthopedic surgery and ultimately determined that the patient was stable for discharge home. Discharge Plan Disposition Patient Disposition: Home Condition: Good Discharge Details Reason For Visit: Left Subcapital Femur Fracture Admit Date/Time: 08/25/23 14:02 Admit Provider: Hoang Ross Attending Provider: Hoang Ross Primary Care Provider: Unknown,Unknown Hospital Course Hospital Course: Patient had no past medical history not on any medications prior to arrival and found to have a left subcapital femur fracture which was successfully repaired on the morning of 08/26/2023. Shortly after surgery the patient was up and walking with a walker with physical therapy determined that the patient would not need any additional services and would be safe to go home. This was confirmed by orthopedic surgery and ultimately determined that the patient was stable for discharge home. Home Meds and New Rx's Prescriptions: New naproxen 250 mg tablet 250 mg PO BID PRNQty: 10 0RF Continued aspirin 325 MG tablet 325 mg PO DAILY Discharge Instructions Instructions: Hip Fracture (GEN) Stand Alone Forms: Nursing Discharge Form Referrals: Luis Light MD [ [facility]FF [facility]YSICIAN] - 09/10/23 9:30 am Activity:: Activity as Tolerated Equipment/Supplies:: Walker Diet:: As Tolerated Discharge Orders Discharge Orders: Discharge Order (Routine); Ordered 08/26/23 Ordered By: Hoang Ross DS: Summary Time Spent with Patient providing and/or coordinating discharge services: Greater than 30 minutes Status at Discharge Functional status at discharge: uses cane/walker Overall status at discharge: patient is back to baseline Mental Status: mental status grossly normal Speech and Movement: speech and movement normal Mood: congruent mood Affect: normal affect Exam Narrative Exam Narrative: Well-appearing older female walking around the room with her walker with no pain or discomfort, A&O x 4, heart regular rate rhythm, lungs clear to auscultation bilaterally, abdomen soft, nontender nondistended, Psych Mental Status: mental status grossly normal Speech and Movement: speech and movement normal Mood: congruent mood Affect: normal affect DS: Data Vitals/I&O Vitals and I&O: Vital Signs Temperature 99.1 F 08/26/23 12:38 Temperature Source Tympanic 08/26/23 12:38 Pulse 83 08/26/23 12:38 Pulse Rhythm Regular 08/26/23 11:50 Respiratory Rate 18 08/26/23 12:38 Respiratory Effort Normal 08/26/23 11:50 Respiratory Depth Normal 08/26/23 11:50 Respiratory Pattern Normal 08/26/23 11:50 Blood Pressure 146/75 H 08/26/23 12:38 Blood Pressure Mean 104 08/25/23 14:52 Pulse Oximetry 97 08/26/23 12:38 Respiratory End-tidal CO2 25 08/26/23 11:35 Oxygen Delivery Method Nasal Cannula 08/26/23 12:38 Oxygen Flow Rate 2 08/26/23 12:38 Pain Level 0 08/26/23 12:38 Comment patient was placed on 2L of o2 sating 92-93% 08/26/23 11:50 Intake & Output 08/25/23 08/26/23 08/26/23 17:59 05:59 17:59 Intake Total 600 / 600 Output Total 450 / 450 800 / 800 Balance -440 / -430 -200 / -200 Weight 120 lb 9.486 oz 120 lb 9.486 oz Intake: IV 600 / 600 Output: Urine 450 / 450 800 / 800 Other: Urine Color Yellow Yellow Urine Appearance Clear Clear Clear Urine Odor Normal Comment purewix Purewick changed. Emesis Description None Data Completed and Pending Labs on day of discharge: Labs from last 24 hours 08/26/23 08/25/23 06:15 18:58 WBC 12.37 H 17.15 H RBC 4.24 4.27 Hgb 12.5 12.4 Hct 37.1 37.8 MCV 88 89 MCH 29.5 29.0 MCHC 33.7 32.8 RDW 12.7 12.6 Plt Count 211 208 MPV 11.5 H 10.7 Immature Gran % 0.6 Neutrophils % 84.9 Lymphocytes % 8.0 Monocytes % 5.9 Eosinophils % 0.2 Basophils % 0.4 Nucleated RBC % 0.0 Absolute Neutrophils 14.56 H Absolute Lymphocytes 1.37 Absolute Monocytes 1.01 H Absolute Eosinophils 0.03 Absolute Basophils 0.07 PT 11.0 INR 1.1 Sodium 139 139 Potassium 3.9 4.0 Chloride 103 103 Carbon Dioxide 25.6 26.5 Anion Gap 10.4 9.5 BUN 19 H 18 Creatinine 1.0 1.2 H Est GFR (CKD-EPI 2020) 56.95 45.76 Glucose 112 H 140 H Calcium 9.1 8.9 Magnesium 1.8 Total Bilirubin 0.5 AST 26 ALT 27 Alkaline Phosphatase 79 Total Protein 6.9 Albumin 3.2 L PFSH All Active Problems (Updated 08/25/23 @ 17:21 by Luis Light MD) Fracture of neck of left femur (Acute 08/25/23) Social History Smoking/Tobacco Use Status: Never Smoking risk assessment performed?: Yes Drug use: Never Housing: house Do you feel safe at home: Yes Do you feel safe in your relationship?: Yes Additional Social history: lives with cheng, [place], RN 08/25/23 Time Spent with Patient Time Spent with Patient: <45 minutes Time was spent: preparing to see the patient(eg.review tests), obtaining and/or reviewing separately otained hiistory, ordering medications,tests, procedures, referring, communicating with other health healthcare sales representative, indepentently interpreting results, counseling the patient and care coordination
== END 2023-08-26 15:14 | disposition home or self-care (01) | DRG 482 ==
LOC: ER 15:24 → MS 15:31
PROVIDERS: Student in an Organized Health Care Education/Training Program; Admitting Provider Family Medicine; Emergency Provider Physician Assistant; Visit Provider Family Medicine
PROC: 0QS734Z Reposition Left Upper Femur with Internal Fixation Device, Percutaneous Approach (ICD-10-PCS; CPT 27235; principal; 2023-08-26 10:00)
DX: S72.002A Fracture of unspecified part of neck of left femur, initial encounter for closed fracture (principal); W17.89XA Other fall from one level to another, initial encounter
CPT/HCPCS: 27235; 00123; 36415; 73552; 80048; 80053; 85027; 97162; 97530; 99223; 99285; 71045; 73501; 73502; 73700; 83735; 85025; 85610; 99233; 99239; J0690; J1100; J1885; J2001; J2371; J2405; J3490

== ENCOUNTER 2023-09-10 14:13 | Outpatient (CLI) | payer BC, SELFPAY ==
--- NOTE | 2023-09-10 09:30 | DI.RAD_ITS ---
Exam(s) XR HIP LT AP LAT ONLY EXAM: XR HIP LT AP LAT ONLY CLINICAL HISTORY: F/U HIP FX REPAIR. TECHNIQUE: 2D digital imaging was performed. Two images were obtained. AP and lateral views were ob tained. COMPARISON: CR,XR XR FEMUR LT from 08/25/2023 XA XR HIP LT IN OR from 08/26/2023 FINDINGS: BONES: There are stable post operative changes present. There are 3 partially threaded screws transf ixing the subcapital left femoral neck fracture. There has been no change in alignment of the orthop edic hardware fracture components. No new fracture or dislocation. JOINTS: The joint spaces are well maintained. There are degenerative changes seen in the left hip wi th joint space narrowing and acetabular and femoral head spurring. There are degenerative changes se en in the lower lumbar spine. SOFT TISSUE: Atherosclerosis is present. IMPRESSION: Stable postoperative changes. DATA REPOSITORY: RADIATION DOSE DELIVERED:
== END 2023-09-10 14:14 | disposition home or self-care (01) ==
LOC: DIORS 14:15
PROVIDERS: Visit Provider Student in an Organized Health Care Education/Training Program
DX: S72.042D Displaced fracture of base of neck of left femur, subsequent encounter for closed fracture with routine healing (principal); X58.XXXD Exposure to other specified factors, subsequent encounter; Z98.890 Other specified postprocedural states
CPT/HCPCS: 73502

== ENCOUNTER 2023-10-08 10:23 | Outpatient (CLI) | payer BC, SELFPAY ==
--- NOTE | 2023-10-08 10:04 | DI.RAD_ITS ---
Exam(s) XR HIP LT COMPLETE AP PELVIS EXAM: XR HIP LT COMPLETE AP PELVIS CLINICAL HISTORY: F/U FRACTURE. TECHNIQUE: 2D digital imaging was performed. COMPARISON: CR,XR XR FEMUR LT from 08/25/2023 XA XR HIP LT IN OR from 08/26/2023 CR XR HIP LT AP LAT ONLY from 09/10/2023 FINDINGS: Again noted are the 3 orthopedic screws across the left femoral neck fracture, these having been plac ed on 08/26/2023. No evidence of screw migration. No evidence of osteomyelitis. Appearance is unch anged from 09/10/2023. IMPRESSION: DATA REPOSITORY: RADIATION DOSE DELIVERED:
== END 2023-10-08 10:24 | disposition home or self-care (01) ==
LOC: DIORS 10:24
PROVIDERS: Visit Provider Student in an Organized Health Care Education/Training Program
DX: S72.002D Fracture of unspecified part of neck of left femur, subsequent encounter for closed fracture with routine healing (principal); X58.XXXD Exposure to other specified factors, subsequent encounter
CPT/HCPCS: 73502

== ENCOUNTER 2023-11-12 12:57 | Emergency (ER) | payer BC, SELFPAY ==
--- NOTE | 2023-11-12 13:00 | RT.EKG_ITS ---
APPROVED REPORT Exam: Resting ECG Reason for Exam: Facial Poralisis Patient Location: E HR:80 bpm ECG Measurements Heart Rate 80 AXIS WY 159 P 68 QRSd 127 QRS -51 QT 394 T 89 QTc 454 Conclusion Sinus rhythm...normal P axis, V-rate 60- 99 Probable left atrial enlargement...P >50mS, <-0.10mV V1 Left bundle branch block...QRSd>120, broad/notched R Sinus rhythm left axis consider left bundle branch block
[2023-11-12 13:04] VITALS: BP 159/50; PULSE 76; RESP 16; TEMP 36.3; O2SAT 97
[2023-11-12 13:16] VITALS: RESP 18
--- NOTE | 2023-11-12 13:28 | ED.GENADUL_ITS ---
Discharge Plan Disposition Patient Disposition: Home Condition: Stable Discharge Details Clinical Impression: Teran's palsy Primary Care Provider: Unknown,Unknown ED Provider: Tuan Barber Home Meds and New Rx's Prescriptions: New valacyclovir 1 gram tablet 1,000 mg PO TID 7 Days Qty: 21 0RF prednisone 20 mg tablet 60 mg PO DAILY 7 Days Qty: 21 0RF No Action ibuprofen 400 mg tablet 400 mg PO Q8H aspirin 325 MG tablet 325 mg PO DAILY Discharge Instructions Instructions: Teran Palsy (ED) Additional Instructions: Please use eye patch as instructed. Please also use [id number] artificial tears/eyedrops in your right eye throughout the day to prevent any injury to your eye. Please return to the emerged part for any worsening symptoms HPI General Date/Time Provider Initiated Documentation: 11/12/23 13:15 . HPI Narrative: 83-year-old female presents with 3 days of right facial symptoms including inability to close right eye drooping of face and inability to raise eyebrow on right, denies recent injuries recent illness weakness numbness change in speech or balance issues. Related Data Home Medications Medication Instructions Recorded Confirmed aspirin 325 mg tablet 325 mg PO DAILY 09/14/15 11/12/23 ibuprofen 400 mg tablet 400 mg PO Q8H 09/10/23 11/12/23 prednisone 20 mg tablet 60 mg (3 x 20 mg) PO DAILY 7 days 11/12/23 #21 tabs valacyclovir 1 gram tablet 1,000 mg PO TID 7 days #21 tabs 11/12/23 Previous Rx's Medication Instructions Recorded prednisone 20 mg tablet 60 mg (3 x 20 mg) PO DAILY 7 days 11/12/23 #21 tabs valacyclovir 1 gram tablet 1,000 mg PO TID 7 days #21 tabs 11/12/23 Allergies Allergy/AdvReac Type Severity Reaction Status Date / Time naproxen Allergy Intermediate Skin Rash Verified 11/12/23 11:53 tetracycline AdvReac Intermediate rash Unverified 11/12/23 11:53 azithromycin AdvReac Mild itchy Unverified 11/12/23 11:53 seasonal allergies Allergy Mild Wheezing Uncoded 11/12/23 11:53 General Stated Complaint: CVA/TIA CONNIE: 3 Review of Systems Narrative: Review of Systems Constitutional: negative Eyes: negative ENT: negative Cardiovascular: negative Respiratory: negative Gastrointestinal: negative : negative Musculoskeletal: negative Skin: negative Neurologic: Facial droop Psych: negative Exam Narrative Exam Narrative: Physical Examination General: alert, awake, cooperative, resting comfortably, no acute distress HEENT: normocephalic, atraumatic; PERRL, EOM intact, conjunctiva normal; TMs clear Neck: supple, trachea midline; full ROM Chest: normal to inspection Respiratory: normal respiratory effort, speaking in full sentences Skin: no lesions, rashes or trauma appreciated Neuro: Alert and oriented x 3, right facial droop involving nasolabial fold and right orbicularis oculi as well as right brow, unable to raise brow unable to fully close right eye, remaining cranial nerves intact, 5-5 strength upper and lower extremities bilaterally, normal sensation, no ataxia Psych: Appropriate mood and affect Course Vital Signs Vital signs: Vital Signs Temperature 36.3 C L 11/12/23 13:04 Pulse 76 11/12/23 13:04 Respiratory Rate 16 11/12/23 13:04 Blood Pressure 159/50 H 11/12/23 13:04 Pulse Oximetry 97 11/12/23 13:04 Temperature 36.3 C L 11/12/23 13:04 Pulse 76 11/12/23 13:04 Respiratory Rate 18 11/12/23 13:16 Respiratory Effort Normal 11/12/23 13:16 Respiratory Depth Normal 11/12/23 13:16 Respiratory Pattern Normal 11/12/23 13:16 Blood Pressure 159/50 H 11/12/23 13:04 Pulse Oximetry 97 11/12/23 13:04 Oxygen Delivery Method Room Air 11/12/23 13:04 Oxygen Flow Rate 0 11/12/23 13:04 Medical Decision Making 83-year-old female presents with 3 days of right facial droop involving nasolabial fold and brow, remaining cranial nerves intact out of 5 strength upper and lower extremities bilaterally, sensation intact, no ataxia, hemodynamically stable, afebrile nontoxic no signs of trauma. No signs of intoxication. No signs of infection. TMs clear bilaterally. High clinical suspicion for Teran's palsy. Given severity of Teran's palsy have initiated antiviral as well as glucocorticoids. Will provide patient with eye patch and encouraged use of artificial tears. Home care instructions and strict return precautions given. Low suspicion for CVA intracerebral hemorrhage mass or seizure disorder. Quality:SDOH Health Related Social Needs: No Data to Display PFSH All Active Problems (Updated 11/12/23 @ 13:32 by Tuan Barber MD) Teran's palsy (Acute) Osteoarthritis of left hip (Acute) Fracture of neck of left femur (Acute 08/25/23) Social History Smoking/Tobacco Use Status: Never Smoking risk assessment performed?: Yes Drug use: Never Housing: house Do you feel safe at home: Yes Do you feel safe in your relationship?: Yes Additional Social history: lives with cheng, [place], RN 08/25/23
[2023-11-12] MEDS: valACYclovir 500 MG TAB 1000 MG PO (13:37)
[2023-11-12] MEDS: predniSONE 20 MG TAB 60 MG PO (13:37)
[2023-11-12 13:45] VITALS: BP 159/50; PULSE 76; RESP 18; TEMP 36.3; O2SAT 97
== END 2023-11-12 13:47 | disposition home or self-care (01) ==
PROVIDERS: Emergency Provider Emergency Medicine
DX: G51.0 Bell's palsy (principal); R29.810 Facial weakness
CPT/HCPCS: 93005; 99283; 93010; J7512

== ENCOUNTER 2023-11-26 15:55 | Outpatient (CLI) | payer BC, SELFPAY ==
--- NOTE | 2023-11-26 10:15 | DI.RAD_ITS ---
Exam(s) XR HIP LT AP LAT ONLY EXAM: XR HIP LT AP LAT ONLY CLINICAL HISTORY: s/p closed reduction and internal fixation L femur. TECHNIQUE: 2D digital imaging was performed. Two views. COMPARISON: CR XR HIP LT COMPLETE AP PELVIS from 10/08/2023 FINDINGS: BONES: 3 screws are again noted in the left femoral neck for fracture fixation. There is no change i n fracture or screw alignment. Continued healing at the fracture site. No bony destructive lesion i s seen. JOINTS: No dislocation present. Moderate narrowing of the left hip joint space. Mild periarticular spurring. SOFT TISSUE: Normal. IMPRESSION: Stable fracture and hardware alignment. DATA REPOSITORY: RADIATION DOSE DELIVERED:
== END 2023-11-26 15:56 | disposition home or self-care (01) ==
LOC: DIORS 15:55
PROVIDERS: Visit Provider Student in an Organized Health Care Education/Training Program
DX: Z98.890 Other specified postprocedural states (principal)
CPT/HCPCS: 73502

== ENCOUNTER 2025-05-13 08:16 | Emergency (ER) | payer BC, SELFPAY ==
[2025-05-13] VITALS (25 sets, daily range): BP systolic 174–221; BP diastolic 46–178; PULSE 55–81; RESP 11–23; TEMP 36.4; O2SAT 91–96
--- NOTE | 2025-05-13 08:15 | DI.CT_ITS ---
Exam(s) CT BRAIN NECK CTA EXAM: CT BRAIN NECK CTA CLINICAL HISTORY: Stroke rule out. TECHNIQUE: Imaging Protocol: Axial CT angiography was performed with multi- slice acquisition and multi-planar and MIP reconstructions. CONTRAST MATERIAL: Intravenous: Omnipaque 350 Contrast volume:70 mL COMPARISON: No exams were available for comparison FINDINGS: CT Head W/O and W contrast: Ventricles and Extra axial spaces: Mild ex vacuo dilatation of the left lateral ventricle. Hemorrhage: None. Cerebral parenchyma: Csmu-zk-opgtenbe atrophy. 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 Mild white matter changes of microvascular disease. No acute infarct is identified. Midline shift: None. Brainstem/Cerebellum: No acute findings.. Calvarium: Normal. Visualized Paranasal sinuses/Mastoids: Clear. Soft Tissues: Unremarkable. Enhancement: Normal. Venous sinuses are patent. CTA Brain W: Internal Carotid Arteries: Right: No aneurysm, occlusion or significant stenosis. Left: No aneurysm, occlusion or significant stenosis. Middle Cerebral Arteries: Right: No aneurysm, occlusion or significant stenosis. Left: No aneurysm, occlusion or significant stenosis. Anterior Cerebral Arteries: Right: No aneurysm, occlusion or significant stenosis. Left: No aneurysm, occlusion or significant stenosis. Posterior cerebral Arteries: Right: No aneurysm, occlusion or significant stenosis. Left: No aneurysm, occlusion or significant stenosis. Vertebral Arteries: Right: No aneurysm, occlusion or significant stenosis. Left: No aneurysm, occlusion or significant stenosis. Basilar Artery: No aneurysm, occlusion or significant stenosis. CTA Neck W: Common Carotid: Right: Mild plaque at the bulb. No dissection, occlusion or significant stenosis. Left: Mild plaque at the bulb. No dissection, occlusion or significant stenosis. External Carotid: Right: No dissection, occlusion or significant stenosis. Left: No dissection, occlusion or significant stenosis. Internal Carotid: Right: Mild plaque proximally, causing [id number] stenosis, less than 50 percent.. Tortuous in the mid to distal portion. No dissection. Left: Mild plaque proximally. Tortuous in the mid to distal portion. No dissection, occlusion or significant stenosis. Vertebral Artery: Right: Dominant. No dissection, occlusion or significant stenosis. Left: Diminutive caliber. No dissection, occlusion or significant stenosis. Aorta: Ascending aorta measures 2.9 cm. [id number] atherosclerotic changes and irregular atherosclerotic plaque. There is calcification at the origin of the left subclavian artery but no significant stenosis. 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 The remainder of the diameter is normal. Lung Apices: No acute findings. Mild emphysematous changes. Bones: No acute abnormality. Degenerative changes. Chronic calcifications in the posterior soft tissues. Soft Tissues: Normal. IMPRESSION: 1. CTA brain: Normal CTA examination of the [place]. 2. Head CT: No acute abnormality. Old left basal ganglia infarct. 3. CTA neck: Mild to moderate stenosis at the proximal right internal carotid artery secondary to plaque. 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 RADIATION DOSE DELIVERED: 1,825.33mGy.cm Total DLP DATA REPOSITORY: All CT scans at this facility are submitted to the National Radiology Data Registry (NRDR) Dose Index Registry (DIR) with the [employer] (A[employer]). RADIATION OPTIMIZATION: All CT scans at this facility use at least one of these dose optimization techniques: automated exposure control; mA and/or kV adjustment per patient size (includes targeted exams where dose is matched to clinical indication); or iterative reconstruction.
[2025-05-13] MEDS: Ondansetron 4 MG/2 ML VIAL IVP (08:38)
[2025-05-13] MEDS: Omnipaque 350 MG/ML 100 ML BTL IJ (08:38)
--- NOTE | 2025-05-13 08:38 | ED.GENADUL_ITS ---
Discharge Plan Disposition Patient Disposition: Home Condition: Stable Discharge Details Clinical Impression: Vertigo, Carotid stenosis Primary Care Provider: Unknown,Unknown ED Provider: Claudette Rivera Home Meds and New Rx's Prescriptions: New meclizine 12.5 mg tablet 12.5 mg PO TID PRN (Reason: dizziness) Qty: 10 0RF Rx Instructions: Please take 1 tablet by mouth up to 3 times daily as needed for dizziness it may make you sleepy. Continued aspirin 325 mg tablet 325 mg PO DAILY Discharge Instructions Instructions: Carotid artery disease, Dizziness, Adult ED Additional Instructions: At this time it does not appear that you are having any acute infarct. No evidence for aneurysm or. 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 You do have some carotid stenosis on the right. Please take the meclizine as prescribed for the dizziness you may take it up to 3 times a day as needed. It may make you sleepy. You were given the first dose here in the emergency department and 1 to take home. Follow up with primary care provider in 3-5 days. Please also call [facility] [place] follow-[place]. Return to ED sooner if any worsening headache, weakness on one side of your body or the other that is worse, worsening dizziness not relieved by the medications, or concerns. Thank you for allowing us to care for you today. Referrals: [facility] [place]uro[place]gery [Outside] - 2 weeks Referral Note: ER follow up Hx CVA, Vertigo Primary Care Provider [Outside] Geena Robbins [ CONSULTING PHYSICIAN, Medicine] Referral Note: PCP establishment Discharge Data Discharge Date/Time-TO BE ENTERED AT DEPARTURE: 05/13/25 11:18 HPI General Mode of arrival: wheelchair . Date/Time Provider Initiated Documentation: 05/13/25 08:22 . Limitations to Documentation: no limitations . Information obtained by: patient, RN notes reviewed and old records reviewed . 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 She does present unstable, she is ANO x 4, no focal motor neurodeficits noted she is slightly weak on the right side right upper extremity batteryman 4 out of 5 and right lower extremity weakness 4 out of 5. She denies any ringing in her ears, denies any headache does have some horizontal nystagmus however exam is limited due to patient's symptoms. She reports dizziness even with laying still. Difficulty ambulating. She does take aspirin 325 mg tablets daily she did take that this morning. Denies any recent injuries or falls. Related Data Home Medications ?Medication ?Instructions ?Recorded ?Confirmed aspirin 325 mg tablet 325 mg PO DAILY 11/26/2301/01 meclizine 12.5 mg tablet 12.5 mg PO TID PRN dizziness #10 05/13/25 tabs Previous Rx's ?Medication ?Instructions ?Recorded meclizine 12.5 mg tablet 12.5 mg PO TID PRN dizziness #10 05/13/25 tabs Allergies Allergy/AdvReac Type Severity Reaction Status Date / Time naproxen Allergy Intermediate Skin Rash Verified 05/13/25 08:25 tetracycline AdvReac Intermediate rash Unverified 05/13/25 08:25 azithromycin AdvReac Mild itchy Unverified 05/13/25 08:25 seasonal allergies Allergy Mild Wheezing Uncoded 05/13/25 08:25 General Stated Complaint: CVA/TIA CONNIE: 2 Review of Systems All systems reviewed & are unremarkable except as noted in HPI and below Constitutional Constitutional: Denies frequent falls and Denies headache(s) ENT Ears, Nose, Mouth, and Throat: Reports vertigo, Reports dizziness, Denies headache(s) and Reports disequilibrium Neurologic Neurologic: Reports as per HPI, Denies confusion, Reports vertigo, Reports dizziness, Denies frequent falls, Denies headache(s), Reports lack of coordination and Reports disequilibrium Psychiatric Psychiatric: Denies confusion Exam Narrative Exam Narrative: Constitutional: Alert and oriented x3. Appears stated age. Normal body habitus. Head: Normocephalic, no trauma. Eyes: Pupils PERRL, Red reflex noted, EOM's intact. Eyelids symmetrical without lesions, discharge, or swelling. ENT: Bilateral TM's WNL, External ear normal to inspection, no mastoid TTP, swelling, or erythema, Nasal turbinates WNL, no nasal discharge. Normal dentition, Posterior pharynx WNL, no exudate. Chest: RRR, Normal S1, S2, distal pulses intact. Resp: Lungs clear to auscultation bilaterally, no wheezes, rales, or rhonchi. Abdomen: Soft, non-distended, Normoactive bowel sounds all 4 quads. Musculoskeletal: Unable to ambulate upon arrival, moves all 4 extremities without difficulty. Skin: No suspicious rashes or lesions. Capillary refill less than 2 sec. Neurologic: Cranial nerves II-XII intact. Alert and oriented x 3. Sensory intact all 4 extremities, patient is very dizzy, loss of balance unable to ambulate, does have horizontal nystagmus, no pronator drift. Rock Dust Sprayer are slightly decreased on the right and plantarflexion extension slightly decreased on the right, no facial droop, does have history of CVA in the with residual right sided deficits. Hematologic/Lymphatic: No ecchymosis, no lymphadenopathy. Eyes EOM: nystagmus Neuro General: patient alert, patient awake, patient oriented x3, moves all extremities, normal light touch, pain and propioception, no meningeal signs, not confused and unable to assess gait Cranial Nerves: facial strength normal, tongue midline and nystagmus horizontal fast component to the right Cognition: normal cognition Speech: speech normal Motor: movement abnormality noted Sensory Exam: no sensory deficits noted Plantar Reflexes: Downgoing: bilateral and Upgoing: bilateral Pupils: Normal pupillary reactivity/response: bilateral Course Vital Signs Vital signs: Vital Signs Temperature 36.4 C L 05/13/25 08:20 Pulse 65 05/13/25 08:20 Respiratory Rate 15 05/13/25 08:20 Blood Pressure 217/59 H 05/13/25 08:20 Pulse Oximetry 96 05/13/25 08:20 Temperature 36.4 C L 05/13/25 08:20 Temperature Source Oral 05/13/25 08:20 Pulse 65 05/13/25 08:20 Respiratory Rate 15 05/13/25 08:20 Blood Pressure 217/59 H 05/13/25 08:20 Blood Pressure Position Sitting 05/13/25 08:20 Pulse Oximetry 96 05/13/25 08:20 Oxygen Delivery Method Room Air 05/13/25 08:20 Oxygen Flow Rate 0 05/13/25 08:20 Pain Level 0 05/13/25 08:20 Medical Decision Making 84-year-old female presents to the ER with a chief complaint of dizziness and loss of balance at oh 6 AM this morning when she got up she reports dizziness nausea vomiting, does have a 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 She does present unstable, she is ANO x 4, no focal motor neurodeficits noted she is slightly weak on the right side right upper extremity batteryman 4 out of 5 and right lower extremity weakness 4 out of 5. She denies any ringing in her ears, denies any headache does have some horizontal nystagmus however exam is limited due to patient's symptoms. She reports dizziness even with laying still. Difficulty ambulating. She does take aspirin 325 mg tablets daily she did take that this morning. Denies any recent injuries or falls. CT stroke protocol initiated, patient does have a history of a CVA in the 90s, does have right sided residual weakness. Please see physical exam. BGL upon arrival was 99. Differential diagnosis includes but not limited to CVA, TIA, vertigo, M?ni?re's, electrolyte abnormality Will anticipate teleneuro. Teleneuro consult ordered, radiology requested to push images to [facility]. At this time due to blood pressure hypertensive 191/178, and remote history of CVA patient is relatively contraindicated for fibrinolytics, will consider labetalol versus nicardipine. Repeat blood pressure is 176/46 and alternates between hypertensive and systolic less than 180. Heart rate is 60 O2 sat is 95% respiration rate is 13. Zofran 4 mg IV ordered and meclizine 12.[address] and CTA showed no acute infarct there is an old left basal ganglia infarct noted and mild to moderate stenosis at the proximal right internal carotid artery secondary to plaque. Please see official report. Also noted mild to moderate atrophy and mild white matter changes of microvascular disease. Old infarct of the left basal ganglia extending into the evans radiata. There is also mild ex vacuo dilatation of the left lateral ventricle. 28: Tele-neuro eval taking place at this time. 928: MRI brain w/o ordered. 40: Spoke with Dr. John Shaffer with teleneuro with [facility] post his evaluation he reports that after the meclizine the patient's symptoms have resolved he does suspect a transient vestibular disorder and recommend outpatient vestibular therapy if this occurs again discharge home with meclizine pending stable road test here in the emergency department. He also recommends continuing her on her aspirin. Also states possible out ENT outpatient follow-up. Will reeval and do a road test. 09 58: Informed by ED staff that patient is still unsteady on her feet, does not ambulate with assistance and feels like I am spinning. Will give an additional 12.5 mg of meclizine and have patient follow-up with ENT as an outpatient and PCP. On patient reevaluation and further communication with the staff patient had not yet had her meclizine after the meclizine reevaluation after 20 minutes patient is ambulatory without difficulty symptoms have resolved. Will plan to discharge home with follow-up with PCP. Patient is ambulatory without assistance prior to discharge. Discussed strict return instructions to return if continued symptoms, worsening headache or weakness. Medical Records Medical records reviewed: Yes I reviewed the patient's medical records. Imaging Data Radiologic Study: Imaging: CT Scan Radiologist's impression: IMPRESSION: 1. CTA brain: Normal CTA examination of the [facility] [place]. 2. Head CT: No acute abnormality. Old left basal ganglia infarct. 3. CTA neck: Mild to moderate stenosis at the proximal right internal carotid a rtery secondary to plaque. 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 Lab Data Lab results reviewed: Yes I reviewed the patient's lab results. Labs: Laboratory Tests Range/Units 05/13/25 08:30 WBC (4.4-10.8) 10^3/uL 8.60 RBC (3.93-5.22) 10^6/uL 4.91 Hgb (11.2-15.7) g/dL 14.3 Hct (36.0-46.0) % 44.3 MCV (80-95) fL 90 MCH (27.0-33.0) pg 29.1 MCHC (32.0-36.0) % 32.3 RDW (11.7-14.6) % 13.2 Plt Count (130-400) 10^3/uL 284 MPV (8.0-11.0) fL 11.3 H Immature Gran % % 0.3 Neutrophils % % 60.4 Lymphocytes % % 27.9 Monocytes % % 6.5 Eosinophils % % 4.3 Basophils % % 0.6 Nucleated RBC % (0.0-0.3) % 0.0 Absolute Neutrophils (1.2-6.7) 10^3/uL 5.19 Absolute Lymphocytes (1.2-3.4) 10^3/uL 2.40 Absolute Monocytes (0.1-0.8) 10^3/uL 0.56 Absolute Eosinophils (0.0-0.7) 10^3/uL 0.37 Absolute Basophils (0.0-0.2) 10^3/uL 0.05 PT (9.1-11.1) sec 10.4 INR (0.9-1.1) 1.0 Sodium (136-145) mmol/L 143 Potassium (3.5-5.1) mmol/L 3.6 Chloride (98-107) mmol/L 106 Carbon Dioxide (21.0-32.0) mmol/L 29.3 Anion Gap (3-11) mmol/L 7.7 BUN (7-18) mg/dL 16 Creatinine (0.55-1.02) mg/dL 1.0 Est GFR (CKD-EPI 2020) (mL/min/1.73m2) 56.25 Glucose (74-106) mg/dL 112 H Calcium (8.5-10.1) mg/dL 9.5 Magnesium (1.8-2.4) mg/dL 1.9 Total Bilirubin (0.2-1.0) mg/dL 0.4 AST (15-37) U/L 22 ALT (14-59) U/L 22 Alkaline Phosphatase (46-116) U/L 87 Troponin I (<or=51) ng/L 43 Total Protein (6.4-8.2) g/dL 8.1 Albumin (3.4-5.0) g/dL 3.9 PFSH All Active Problems (Updated 05/13/25 @ 10:57 by Claudette Rivera NP) Carotid stenosis (Acute) Vertigo (Acute) Osteoarthritis of left hip (Acute) Fracture of neck of left femur (Acute 08/25/23) Social History Smoking/Tobacco Use Status: Never Smoking risk assessment performed?: Yes Alcohol Intake: never Drug use: Never Substance use type: does not use Housing: house Do you feel safe at home: Yes Do you feel safe in your relationship?: Yes Additional Social history: lives with cheng, [place], RN 08/25/23
[2025-05-13] MEDS: Normal Saline - Diluent 50 ML VIAL IJ (08:39)
[2025-05-13] MEDS: Normal Saline Flush 10 ML SYR IVP (08:41)
[2025-05-13 08:42] LABS: Abs Immature Grans 0.03 10^3/uL (0.0-0.06); HCT 44.3 % (36.0-46.0); HGB 14.3 g/dL (11.2-15.7); Immature Grans % 0.3 %; MCH 29.1 pg (27.0-33.0); MCHC 32.3 % (32.0-36.0); MCV 90 fL (80-95); MPV 11.3 fL (8.0-11.0); Platelet Count 284 10^3/uL (130-400); RBC 4.91 10^6/uL (3.93-5.22); RDW 13.2 % (11.7-14.6); RDW-SD 42.6 fL; WBC 8.60 10^3/uL (4.4-10.8)
--- NOTE | 2025-05-13 08:45 | RT.EKG_ITS ---
APPROVED REPORT Exam: Resting ECG Reason for Exam: POSSIBLE STROKE Patient Location: E HR:67 bpm ECG Measurements Heart Rate 67 AXIS KS 179 P 75 QRSd 125 QRS -44 QT 443 T 80 QTc 468 Conclusion Sinus rhythm...normal P axis, V-rate 60- 99 Left bundle branch block...QRSd>120, broad/notched R
[2025-05-13 08:51] LABS: INR 1.0 (0.9-1.1); Prothrombin Time 10.4 sec (9.1-11.1)
[2025-05-13 09:19] LABS: ALT 22 U/L (14-59); AST 22 U/L (15-37); Albumin 3.9 g/dL (3.4-5.0); Alkaline Phosphatase 87 U/L (46-116); Anion Gap 7.7 mmol/L (3-11); BUN 16 mg/dL (7-18); Bilirubin, Total 0.4 mg/dL (0.2-1.0); CO2 29.3 mmol/L (21.0-32.0); Calcium 9.5 mg/dL (8.5-10.1); Chloride 106 mmol/L (98-107); Estimated GFR 56.25 (mL/min/1.73m2); Glucose 112 mg/dL (74-106); Magnesium 1.9 mg/dL (1.8-2.4); Potassium 3.6 mmol/L (3.5-5.1); Sodium 143 mmol/L (136-145); Total Protein 8.1 g/dL (6.4-8.2); Troponin I 43 ng/L (<or=51)
[2025-05-13] MEDS: Meclizine 12.5 MG TAB PO ×2 (10:05→11:08)
[2025-05-13 10:16] LABS: Troponin I 36 ng/L (<or=51)
== END 2025-05-13 11:18 | disposition home or self-care (01) ==
PROVIDERS: Emergency Provider Registered Nurse Emergency
DX: R42 Dizziness and giddiness (principal); I65.21 Occlusion and stenosis of right carotid artery
CPT/HCPCS: 99285; 99284; 36415; 36416; 82962; 96374; 70496; 70498; 80053; 93005; 81003; 83735; 84484; 85025; 85610; 93010; J2405; J3490